=== PATIENT | female | born 1940 | race Caucasian/White ===

== ENCOUNTER 2020-06-11 03:00 | Inpatient (IN) | payer MEDICARE, OTHER ==
[~2020-06-11] VITALS: Wt 44.0 kg
[2020-06-11 04:48] VITALS: BP 123/104; PULSE 82; TEMP 98.7
--- NOTE | 2020-06-11 05:07 | NUR ---
Arrived via EMS- transferred to bed and made comfortable, patient incontinent of stool, moreau in place draining yellow urine to bag, oriented to self only, skin frail with eccymosis, contractures noted to hands, fall precautions in place, DPOA escorted to room, Salome TSANG here to see patient and family.
[2020-06-11] MEDS ORDERED: TOPROL XL 50MG50 MG PO (06:03)
[2020-06-11] MEDS ORDERED: LIPITOR 80MG80 MG PO (06:03)
[2020-06-11] MEDS ORDERED: PROTONIX 40MG T40 MG PO (06:03)
[2020-06-11] MEDS ORDERED: NEURONTIN100 MG/CAP PO (06:04)
[2020-06-11] MEDS ORDERED: DESYREL 100MG100 MG PO (06:04)
--- NOTE | 2020-06-11 07:13 | NUR ---
PATIENT ON 3 LPM SPO2 98%.
[2020-06-11 07:47] VITALS: BP 110/84; PULSE 88; TEMP 98.6
[2020-06-11 08:37] LABS: BASO % 0.2 % (0.0-2.0); EOS % 0.1 % (0-4.0); GRAN # 16.1 (1.4-6.5); GRAN % 87.1 % (42.2-75.2); LYMPH # 1.1 (1.2-3.4); MEAN CELL VOLUME 95 fl (80.0-100.0); MEAN CORPUSCULAR HGB CONC 32 g/dl (33.0-37.0); MEAN PLATELET VOLUME 9.6 fl (7.4-10.4); MONO # 1.1 (0.1-0.6); MONO % 5.9 % (1.7-9.3); PLATELET COUNT 299 K/mm3 (130-400); RED BLOOD COUNT 3.28 M/mm3 (4.10-5.30); REDCELL DISTRIBUTION WIDTH-CV 13.6 % (11.5-14.5)
[2020-06-11 08:48] LABS: CALCIUM 7.5 mg/dL (8.4-10.2); CREATININE, serum 0.52 (0.52-1.25); POTASSIUM 3.6 mmol/L (3.4-5.0)
[2020-06-11 08:55] LABS: HEMATOCRIT 31.3 % (37.0-47.0); HEMOGLOBIN 9.9 g/dl (12.5-16.0); MEAN CORPUSCULAR HEMOGLOBIN 30 pg (27.0-31.0)
--- NOTE | 2020-06-11 09:33 | NUR ---
Pt admitted with three IV lines. Student nurse removed IV from Right hand. Fingers on right hand appear edematous. Upon assessment, pt presented with erythmatous area on sacral/coccyx area. Nurse and student nurse applied a padded bandage to area and placed pt on q2h turns. Pt appears to be alert but is not oriented to time, place, or people. Pt right hand appears contracted. When right lower extremity moved, pt vocalizes pain.
--- NOTE | 2020-06-11 09:35 | NUR ---
Rounded w/hospitalist. Pt made NPO until bedside swallow done by
--- NOTE | 2020-06-11 09:47 | NUR ---
I agree w/student nurse's assessment. Continuing to monitor. Bed alarm on.
[2020-06-11 12:58] VITALS: BP 149/91; PULSE 95; TEMP 98.4
--- NOTE | 2020-06-11 14:43 | NUR ---
This instructor supervised ASIA's care, agree with documentation.
--- NOTE | 2020-06-11 15:51 | NUR ---
Senior Linux Administrator contacted Megan Mcnkight to complete intake. Megan is the patient's son-in-law. Megan reports that is (the patient's daughter) in April of 2018 and he promised to care for the patient. Megan reports that the patient lives with him. He is the patient's manager multimedia caregiver. The patient has an accessible home in order to provide the proper care. The patiet's PCP is Dr. Dickerson and patient receives medications from [facility]. The patient does not have advanced directives in the EMR. Megan states there are advanced directives. He is to bring copy. Rodneyvera reports he has left them with the ED department. This SW not clubhouse attendant could not track it down. The plan is to return home with continued support from Megan. Discharge dispositon: Home with continued care from Megan
[2020-06-11 16:28] VITALS: BP 131/106; PULSE 97; TEMP 98.4
[2020-06-11 16:39] VITALS: BP 139/68
--- NOTE | 2020-06-11 18:13 | NUR ---
Patient doing well throughout the day, will ocassionally moan or yell out. Advanced to pureed diet with honey thick liquids after ST eval, tolerating well. Son in law at bedside. Patient will answer questions appropriately when asked. Art to DD with ta urine present. Denies further needs at this time. Patient repositioned throughout the day. Will report off to night auditor.
--- NOTE | 2020-06-11 19:26 | NUR ---
Awake, alert, oriented to self- confused, poa at bedside, patient rambles nonsensicle sounds, moreau draining per gravity w/o issue, telemetry in use, call jaramillo w/i reach, room close to nursing station.
[2020-06-12 00:21] VITALS: BP 131/67; PULSE 103; TEMP 97.5
[2020-06-12 07:58] VITALS: BP 151/79; PULSE 115
[2020-06-12 08:10] LABS: HEMOGLOBIN 10.6 g/dl (12.5-16.0); MEAN CELL VOLUME 96 fl (80.0-100.0); MEAN CORPUSCULAR HEMOGLOBIN 31 pg (27.0-31.0); MEAN CORPUSCULAR HGB CONC 32 g/dl (33.0-37.0); MEAN PLATELET VOLUME 9.2 fl (7.4-10.4); PLATELET COUNT 310 K/mm3 (130-400); RED BLOOD COUNT 3.44 M/mm3 (4.10-5.30); REDCELL DISTRIBUTION WIDTH-CV 13.9 % (11.5-14.5)
[2020-06-12 08:13] LABS: HEMATOCRIT 33.1 % (37.0-47.0)
[2020-06-12 08:15] LABS: CALCIUM 7.4 mg/dL (8.4-10.2); CREATININE, serum 0.47 (0.52-1.25); POTASSIUM 3.2 mmol/L (3.4-5.0)
[2020-06-12 08:32] LABS: BAND 14 % (0-10); LYMPHOCYTE 3 % (20.0-51.0); NEUTROPHILS 80 % (42.0-75.2); PLATELET ESTIMATE NORMAL (NORMAL)
--- NOTE | 2020-06-12 08:37 | NUR ---
Pt assessment complete. Pt is laying in bed upon entry, she is alert and oriented to self only. Pt will stop yelling out when asked a question and answer. She denies any pain. Very fearful when being turned. Incontinent of bowel, pericare provided. Pt repositioned, mepilex placed to coccyx. IVF infusing. Pt's breathing is even and unlabored on 3L O2 via NC. Wet cough present. Pt often yelling out "help me" but when asked what she needs, pt unable to tell staff. Fall Precautions in place.
[2020-06-12 09:34] LABS: COLLECTION METHOD IN
[2020-06-12 09:50] LABS: GRANULAR CAST >12 /lpf; MUCOUS Present /lpf; PH 5 (5-8); SQUAMOUS EPITHELIAL 0-2 /hpf; URINE APPEARANCE Cloudy; URINE BACTERIA Rare /hpf; URINE BILIRUBIN Negative (NEGATIVE); URINE BLOOD 1+ (NEGATIVE); URINE COLOR Yellow; URINE GLUCOSE Negative (NEGATIVE); URINE KETONE Trace (NEGATIVE); URINE LEUKOCYTE ESTERASE 1+ (NEGATIVE); URINE NITRATE Negative (NEGATIVE); URINE PROTEIN(semi-quant) 2+ (NEGATIVE); URINE RBC 20-50 /hpf; URINE UROBILINOGEN Negative (NEGATIVE)
--- NOTE | 2020-06-12 10:16 | NUR ---
A copy of the patient's DPOA-HC is in the chart. It designates Emmanual Mcknight.
--- NOTE | 2020-06-12 10:57 | NUR ---
Pt yelling out in pain, yells when she coughs and is moved. IV Morphine administered, Lidocaine patch placed to R side. Egg mattress in place, heel protectors but on to bilateral feet. Fall precautions in place.
[2020-06-12 11:47] VITALS: BP 185/88; PULSE 111
--- NOTE | 2020-06-12 13:44 | NUR ---
PT REUSED TREATMENT
[2020-06-12 16:02] VITALS: BP 131/86; PULSE 94; TEMP 97.9
--- NOTE | 2020-06-12 20:40 | NUR ---
PATIENT REMOVED MASK REPEATEDLY. TX WAS NOT FINISHED.
[2020-06-12 20:56] VITALS: BP 151/99; PULSE 112; TEMP 97.8
[2020-06-12 23:30] VITALS: BP 142/88; PULSE 103; TEMP 98.7
--- NOTE | 2020-06-13 01:21 | NUR ---
Repositioned at this time with pillow support. Moaning out-grimaces with movement and grabs at right side. When asked if in pain states "a little." Morphine given per order. Will continue to monitor.
--- NOTE | 2020-06-13 01:57 | NUR ---
TRINH Mcmahon notified of increased agitation/removing oxygen tubing/combative. New orders received and initiated.
[2020-06-13 04:16] VITALS: BP 169/88; PULSE 105; TEMP 98.5
[2020-06-13 04:29] VITALS: BP 148/88
--- NOTE | 2020-06-13 05:30 | NUR ---
Has pulled out IV to left AC. Bed linens changeds/repositioned in bed with pillow supoprt. IV restarted to left upper arm x1 attempt-20g. IV fluid orders restarted. Will monitor.
--- NOTE | 2020-06-13 05:50 | NUR ---
Discussed morphine admin with TRINH Mcmahon. Patient continues to moan out/grimace/grab right side. Denies pain. Very restless and agitated-removing oxygen. Unable to re-orient. TRINH Mcmahon okay if morphine given. Did receive Haldol earlier in shift but did not calm patient at all. Morphine given at this time. Will monitor.
[2020-06-13 07:07] LABS: HEMOGLOBIN 10.8 g/dl (12.5-16.0); MEAN CELL VOLUME 97 fl (80.0-100.0); MEAN CORPUSCULAR HEMOGLOBIN 31 pg (27.0-31.0); MEAN CORPUSCULAR HGB CONC 32 g/dl (33.0-37.0); MEAN PLATELET VOLUME 9.6 fl (7.4-10.4); PLATELET COUNT 367 K/mm3 (130-400); RED BLOOD COUNT 3.52 M/mm3 (4.10-5.30); REDCELL DISTRIBUTION WIDTH-CV 14.1 % (11.5-14.5)
[2020-06-13 07:12] LABS: HEMATOCRIT 34.3 % (37.0-47.0)
[2020-06-13 07:20] LABS: CALCIUM 7.9 mg/dL (8.4-10.2); CREATININE, serum 0.45 (0.52-1.25)
[2020-06-13 07:31] LABS: BAND 7 % (0-10); LYMPHOCYTE 2 % (20.0-51.0); NEUTROPHILS 88 % (42.0-75.2); PLATELET ESTIMATE NORMAL (NORMAL)
[2020-06-13 07:53] VITALS: BP 149/84; PULSE 102; TEMP 98.1
--- NOTE | 2020-06-13 09:33 | NUR ---
Vancomycin Initial Dosing Pharmacy Note Ordering provider: Daniel Mike MD Indication/duration: PNA, 5 days LABS: SCr 0.45, CrCl~ 37, GFR 135 Recommendation: Give Vancomycin 1 gm IV x1 loading dose, then 750 mg IV q12h. Pharmacy will continue to closely monitor and check a Vancomcyin trough on 06/15/20. Loading dose: 1 gram Maintenance dose: 750 mg every 12 hours Trough goal: 15-20 ug/mL
[2020-06-13 12:59] VITALS: BP 169/86; PULSE 100; TEMP 98.3
[2020-06-13 16:00] VITALS: BP 164/88; PULSE 103; TEMP 98.3
--- NOTE | 2020-06-13 16:35 | NUR ---
Blunger Loader contacted Case to attempt to follow up on discharge plan. SW left a message.
[2020-06-13 20:55] VITALS: BP 152/99; PULSE 103; TEMP 98.6
--- NOTE | 2020-06-13 21:13 | NUR ---
I recieved report from the dayshift nurse. Patient was making incomprehensible noises for hours. The nurses said she makes those sounds when she is in pain, I did give her one dose of morphine and she continued to make the noises for about half an hour longer. Now she is resfully asleep. She is on 2L NC and oxygen saturation is in 96%. NS is running at 75 and Zosyn at 25cc/hr. Patient has boots on her heals and moreau is draining well.
[2020-06-14] VITALS (130 sets, daily range): BP systolic 114–168; BP diastolic 61–98; PULSE 73–166; TEMP 98.1–98.7; O2SAT 84–99
[2020-06-14 06:36] LABS: HEMOGLOBIN 10.7 g/dl (12.5-16.0); MEAN CELL VOLUME 96 fl (80.0-100.0); MEAN CORPUSCULAR HEMOGLOBIN 30 pg (27.0-31.0); MEAN CORPUSCULAR HGB CONC 31 g/dl (33.0-37.0); MEAN PLATELET VOLUME 9.6 fl (7.4-10.4); PLATELET COUNT 348 K/mm3 (130-400); RED BLOOD COUNT 3.58 M/mm3 (4.10-5.30); REDCELL DISTRIBUTION WIDTH-CV 14.3 % (11.5-14.5)
[2020-06-14 06:51] LABS: CALCIUM 7.8 mg/dL (8.4-10.2); CREATININE, serum 0.47 (0.52-1.25); POTASSIUM 3.5 mmol/L (3.4-5.0)
[2020-06-14 06:58] LABS: HEMATOCRIT 34.4 % (37.0-47.0)
[2020-06-14 08:36] LABS: LYMPHOCYTE 2 % (20.0-51.0); NEUTROPHILS 96 % (42.0-75.2)
[2020-06-14 08:40] LABS: HYPOCHROMIA 1+; PLATELET ESTIMATE NORMAL (NORMAL)
[2020-06-14 13:05] LABS: ARTERIAL BLD GAS O2 SATURATION 98.3 % (92-100); ARTERIAL BLOOD GAS BASE EXCESS -3.3 (-2-2); ARTERIAL BLOOD GAS PO2 114.5 mmHg (80-100)
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
--- NOTE | 2020-06-14 14:01 | NUR ---
At 1220 telemetry desk called stating the patients heart rate is in the 200's. EKG ordered and ABG's. Notified Lani TSANG with hospitalist about patients heart rate. Patients IV sites are both leaking and not flushing. Started 2 new IV sites. Patient has an order for a PICC line but was not able to get a hold of AIV earlier, had left a message. Patients BP is stable. Heart rate in 180's. IV lopressor given at 1247. RT was having a hard time getting her ABG. Patient seems uncomfortable but is not able to answer questions. Her DPOA has been notified of her changes. PICC line placed. New EKG ordered. Dr Hanson in seeing patient. Patients heart rate is now in 80's. No other changes at this time. Call leonard green.
--- NOTE | 2020-06-14 14:08 | NUR ---
Primary nurse was assisted with [phone] patient care by [facility] student Haleigh Carvajal and [facility] instructor Layne Horner MSN, RN.
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
--- NOTE | 2020-06-14 15:31 | NUR ---
Senior Commissions Analyst collaborated with Maryana Palliative RN about palliative consult. Maryana advised that patient's son in law, Case wants everything done for patient at this time. Patient to transfer to ICU.
[2020-06-14 16:41] LABS: PARTIAL THROMBOPLASTIN TIME 28.5 SECONDS (26.0-37.0)
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
--- NOTE | 2020-06-14 17:00 | NUR ---
Transferred patient to CT and than to ICU 5. She has been resting more comfortably since her heart is in the 80s and her son in law is here. She continues to be alert but is not able to answer questions. On the way to CT we seen Dr Cole in the hallway and notified of her being transferred and why. He stated he will speak with the DPOA down there. All belongings packed up and sent with patient. No other changes at this time. Explained to the Son-n-law why she is being transferred. Dr Hanson seen patient and ordered different IV medications that can't be given on the floor.
--- NOTE | 2020-06-14 17:58 | NUR ---
BEDSIDE TO EVALUATE PT AND HEAD CT.
--- NOTE | 2020-06-14 19:00 | NUR ---
PT VERY RESTLESS AND PULLING AT LINES. PT'S BP ELEVATED. PT'S SON IN LAW STATES HE BELIEVES SHE IS IN PAIN. CALL PLACED TO WENDY ROGEL. ORDER RECEIVED FOR MORPHINE.
--- NOTE | 2020-06-14 19:09 | NUR ---
PT'S SON IN LAW IS REQUESTING THAT WE GET THE PT'S CT PLACED TONIGHT. TRIED EXPLAINING THE CT PLACEMENT WAS PUT ON HOLD D/T AFIB AND POSSIBLE CVA. SON IN LAW INSISTING I DISCUSS WTIH WHARF ATTENDANT PROVIDER. TIFFANY ROGEL NOTIFIED OF ABOVE. SHE STATES WE SHOULD NOTIFY .
--- NOTE | 2020-06-14 19:20 | NUR ---
Received report from SENTHIL Linda. Patient is resting in bed. Son-in-law is at the bedside. All pumps and drips confirmed. BP is elevated at 182/101, other vitals within normal limits. Patient wearing 5L via oxymask, tolerating well. She is moaning frequently; received in report patient has been intermittently moaning since arriving to unit. Will notify Amber, hospitalist, for further pain management orders. No further needs noted at this time.
--- NOTE | 2020-06-14 19:40 | NUR ---
SPOKE WITH REGARDING SON IN LAWS CONCERN OVER CHEST TUBE NEEDING PLACED SOON POSSIBLE. SON IN LAW PREVIOUSLY NOTIFIED THAT D/T PTS AFIB AND CVA, CT ON HOLD TILL TOMORROW. STATES HE WILL CALL BACK ONCE HE IS HOME AND SPEAK WITH THE SON IN LAW. RC NDIAYE NOTIFIED OF ABOVE.
--- NOTE | 2020-06-14 20:30 | NUR ---
Dr. Cole called at 1941 to speak with patient's son-in-law regarding chest tube placement tentatively scheduled for tomorrow 06/15. Dr. Cole requested that heparin drip be placed on standby no later than 0500 tomorrow morning to plan for procedure around 11-1200, but to confirm with hospitalist. Amber contacted at 2005; who requested cardiology clarify orders for heparin drip. At this time, notified Amber of patient's continued moaning, despite morphine administration at 1859. Patient's BP at this time is 182/101. Received orders for morphine 1mg Q 2H PRN IV. Dr. Hanson called at 2006. Notified of critical troponin received at 1944 and requested orders for heparin drip stop time to plan for chest tube insertion tomorrow. Received orders to run heparin drip throughout the night, stopping at 0500 tomorrow morning, 06/15.
--- NOTE | 2020-06-14 23:49 | NUR ---
During 2100 assessment, patient's pupils were noted to be slightly unequal, the right measuring approximately 2mm, the left measuring 4mm. Pupils were non-reactive and corneal reflex was absent bilaterally. At approximately 2315, patient's pupils were significantly unequal, the right 2mm, the left 6-7mm. Pupils remain non-reactive and corneal reflex is absent. Attempted to notify Amber hospitalist, at 2326, who referred this RN to [facility]. [facility] physician, Dr. Corona, notified of the above at 2330. Awaiting further orders at this time.
[2020-06-15] VITALS (553 sets, daily range): BP systolic 139–179; BP diastolic 71–111; PULSE 13–124; TEMP 97.4–97.9; O2SAT 80–100
--- NOTE | 2020-06-15 00:06 | NUR ---
Updated Dr. Mazariegos on patient's neurological status, including unequal and non-reactive pupils. Received orders for mannitol 25G IV Q 6HR.
[2020-06-15 06:42] LABS: CHOLESTEROL RISK RATIO 2.6
[2020-06-15 08:07] LABS: CALCIUM 7.7 mg/dL (8.4-10.2); CREATININE, serum 0.44 (0.52-1.25)
--- NOTE | 2020-06-15 09:02 | NUR ---
Ok to give rectal aspirin per Dr. Cole.
[2020-06-15 09:39] LABS: HEMOGLOBIN 10.5 g/dl (12.5-16.0); MEAN CELL VOLUME 94 fl (80.0-100.0); MEAN CORPUSCULAR HEMOGLOBIN 30 pg (27.0-31.0); MEAN CORPUSCULAR HGB CONC 32 g/dl (33.0-37.0); MEAN PLATELET VOLUME 9.5 fl (7.4-10.4); PLATELET COUNT 351 K/mm3 (130-400); REDCELL DISTRIBUTION WIDTH-CV 14.4 % (11.5-14.5)
[2020-06-15 11:07] LABS: BAND 8 % (0-10); LYMPHOCYTE 3 % (20.0-51.0); NEUTROPHILS 88 % (42.0-75.2); PLATELET ESTIMATE NORMAL (NORMAL)
--- NOTE | 2020-06-15 11:13 | NUR ---
Plastic Eye Technician attended clinical rounds with the team and Dr. Sim talked with patient's son, Case at length about plan of care. Patient to have chest tube placed today.
[2020-06-15 11:21] LABS: ARTERIAL BLD GAS O2 SATURATION 97.5 % (92-100); ARTERIAL BLOOD GAS BASE EXCESS 2.4 (-2-2); ARTERIAL BLOOD GAS HCO3 26.8 meq/L (22-26); ARTERIAL BLOOD GAS PCO2 40.6 mmHg (35-45); ARTERIAL BLOOD GAS PO2 92.5 mmHg (80-100); ARTERIAL BLOOD GAS pH 7.44 (7.35-7.45)
--- NOTE | 2020-06-15 12:40 | NUR ---
Departed ICU with OR staff for chest tube placement; Stable upon transfer.
--- NOTE | 2020-06-15 13:23 | NUR ---
Patient returned from OR with chest tube in place. Attached to suction at 20 cm. VS stable; OR staff reported tolerated procedure well. Chest tube connections checked and clamps at bedside. Will continue to monitor.
--- NOTE | 2020-06-15 14:10 | NUR ---
Discussed with Dr. Gaspar that he would like patient to be re-started on the heparin drip when able after surgery. Can re-start heparin drip 4 hours post surgery per Dr. Cole.
[2020-06-15 14:38] LABS: PLEURAL FLUID RBC 1000 /mm3 (0-0); PLEURAL FLUID WBC 1173 /mm3
--- NOTE | 2020-06-15 14:45 | NUR ---
Left for MRI at this time; attached to all monitors.
[2020-06-15 14:50] LABS: GLUCOSE,PLEURAL FLUID 165 mg/dL; TOTAL PROTEIN,PLEURAL FLUID 2.4 gm/dL
--- NOTE | 2020-06-15 15:37 | NUR ---
Returned from MRI; tolerated procedure well.
[2020-06-15 17:07] LABS: ALBUMIN 2.3 gm/dL (3.5-5.0); BILIRUBIN UNCONJUGATED 0.2 mg/dL (0.0-1.1); BILIRUBIN,DIRECT 0.1 mg/dL (0.0-0.4); BILIRUBIN,TOTAL 0.2 mg/dL (0.0-1.0); TOTAL PROTEIN 5.5 gm/dL (6.4-8.2)
[2020-06-15 17:08] LABS: CALCIUM 7.9 mg/dL (8.4-10.2); CREATININE, serum 0.47 (0.52-1.25); POTASSIUM 3.4 mmol/L (3.4-5.0)
--- NOTE | 2020-06-15 18:36 | NUR ---
Re-started heparin drip after chest tube placement per Dr. Cole's orders. Re-started at previous rate of 1000u/hr.
--- NOTE | 2020-06-15 19:44 | NUR ---
Called Dr. Bernal to request he go over the MRI/MRA results now that the son in law is at the bedside. Dr bernal updating family member at this time.
--- NOTE | 2020-06-15 21:15 | NUR ---
During assessment, patient's chest tube insertion site dressing was noted to be heavily saturated with blood. Copious amounts of bloody drainage visible in chest tube and in drainage system. Clots noted in drainage tubing, requiring frequent milking to promote appropriate drainage. A clot formed at drainage tube system that was unable to be passed by milking. Dr. Cole notified of the above at 2049. Received orders to stop patient's heparin drip and to remove and replace insertion site dressing. To reinforce with gauze as needed. Dressing and drainage tube system changed with the assistance of distribution warehouse managerKindra.
[2020-06-15 23:36] LABS: PLEURAL FLUID COLOR YELLOW
[2020-06-15 23:39] LABS: PLEURAL FLUID APPEARANCE HAZY
[2020-06-16] VITALS (553 sets, daily range): BP systolic 128–175; BP diastolic 72–97; PULSE 81–98; TEMP 97.1–98.4; O2SAT 90–100
[2020-06-16 05:56] LABS: BASO % 0.2 % (0.0-2.0); GRAN # 18.1 (1.4-6.5); GRAN % 92.1 % (42.2-75.2); LYMPH # 0.5 (1.2-3.4); LYMPH % 2.6 % (20.0-51.0); MEAN CELL VOLUME 95 fl (80.0-100.0); MEAN CORPUSCULAR HGB CONC 32 g/dl (33.0-37.0); MEAN PLATELET VOLUME 9.9 fl (7.4-10.4); MONO # 0.9 (0.1-0.6); MONO % 4.4 % (1.7-9.3); PLATELET COUNT 387 K/mm3 (130-400); RED BLOOD COUNT 2.84 M/mm3 (4.10-5.30); REDCELL DISTRIBUTION WIDTH-CV 14.5 % (11.5-14.5)
[2020-06-16 05:59] LABS: HEMATOCRIT 27.1 % (37.0-47.0); HEMOGLOBIN 8.6 g/dl (12.5-16.0); MEAN CORPUSCULAR HEMOGLOBIN 30 pg (27.0-31.0)
[2020-06-16 06:06] LABS: ALBUMIN 2.2 gm/dL (3.5-5.0); BILIRUBIN,TOTAL 0.2 mg/dL (0.0-1.0); CALCIUM 7.8 mg/dL (8.4-10.2); CREATININE, serum 0.51 (0.52-1.25); POTASSIUM 3.4 mmol/L (3.4-5.0)
--- NOTE | 2020-06-16 16:30 | NUR ---
Pt's son-in-law called, updated and confirmed consent to transfer with SENTHIL Shresthahydrocrane operator. SENTHIL Shrestha discussed at length with Megan (son-in-law) and answered all questions
--- NOTE | 2020-06-16 17:10 | NUR ---
Pt departed with EMS. No belongings in room with pt Report given to SENTHIL Lozada at Med
== END 2020-06-16 17:10 | disposition short-term general hospital (02) | DRG 871 ==
LOC: MEDICAL 03:00 → ICU 04:32 → MEDICAL 04:32 → ICU 06-14 17:05
PROVIDERS: Hospitalist; Internal Medicine Pulmonary Disease; Physician Assistant; Student in an Organized Health Care Education/Training Program; Surgery; ADMIT Internal Medicine
PROC: 0W9930Z Drainage of Right Pleural Cavity with Drainage Device, Percutaneous Approach (ICD-10-PCS; principal; 2020-06-15 12:00)
DX: A41.9 Sepsis, unspecified organism (principal); J18.9 Pneumonia, unspecified organism; J96.01 Acute respiratory failure with hypoxia; E43 Unspecified severe protein-calorie malnutrition; G93.41 Metabolic encephalopathy; I63.9 Cerebral infarction, unspecified; R64 Cachexia; N39.0 Urinary tract infection, site not specified; E87.2 Acidosis; J90 Pleural effusion, not elsewhere classified; I50.22 Chronic systolic (congestive) heart failure; Z68.1 Body mass index [BMI] 19.9 or less, adult; I11.0 Hypertensive heart disease with heart failure; J43.9 Emphysema, unspecified; G89.29 Other chronic pain; F41.9 Anxiety disorder, unspecified; E78.5 Hyperlipidemia, unspecified; K21.9 Gastro-esophageal reflux disease without esophagitis; E87.6 Hypokalemia; I48.0 Paroxysmal atrial fibrillation; Z86.73 Personal history of transient ischemic attack (TIA), and cerebral infarction without residual deficits; R91.1 Solitary pulmonary nodule; Z90.710 Acquired absence of both cervix and uterus; Z85.42 Personal history of malignant neoplasm of other parts of uterus; Z87.891 Personal history of nicotine dependence
CPT/HCPCS: 99223-AI; 99233-AI; A7041; A9585; C1751; C9113; J0282; J0360; J0456; J0696; J1630; J1644; J1650; J2060; J2250; J2270; J2370; J2543; J2704; J3010; J3370; J3480; J7030; J7050; J7060; Q9967